=== PATIENT | female | born 1985 | race Caucasian/White ===

== ENCOUNTER 2022-07-06 08:13 | Inpatient (IN) ==
[2022-07-06] MEDS ORDERED: Buffered Lidocaine 1% SYRIN 1 ml INTRADERM ONE (09:19)
[2022-07-06] MEDS ORDERED: miSOPROStol 100 mcg TAB VAGINAL ONE (09:19)
[2022-07-06] MEDS ORDERED: Lactated Ringers 1000 ml BAG 1,000 ML IV ONE (09:19)
[2022-07-06 10:11] LABS: Urine Benzodiazepine Screen None Detected (None Detect); Urine Cannabinoids Screen None Detected (None Detect); Urine Opiates Screen None Detected (None Detect)
[2022-07-06 21:24] LABS: ABS Basophils 0.1 10^3/ul (0-0.2); ABS Eosinophils 0.1 10^3/ul (0-0.6); ABS Lymphocytes 1.4 10^3/ul (1.0-4.8); ABS Monocytes 0.8 10^3/ul (0-0.8); ABS Neutrophils 8.7 10^3/ul (1.5-7.7); Eosinophil % 0.5 %; Hematocrit 40 % (35-47); Hemoglobin 12.8 g/dL (12.0-16.0); Lymphocyte % 12.8 %; Mean Corpuscular HGB Conc 32 g/dL (31-36); Mean Corpuscular Hemoglobin 28 pg (27-31); Mean Corpuscular Volume 88 fL (80-97); Mean Platelet Volume 10.1 fL (7.4-10.4); Platelet Count 184 10^3/uL (150-450); Red Blood Count 4.57 10^6 /uL (3.70-4.87); Red Cell Distribution Width 16 % (10-15); White Blood Count 11.1 10^3/uL (3.5-10.8)
[2022-07-06] MEDS ORDERED: EPINEPHrine SULFITE FREE 1 MG/ML ONE (21:29)
[2022-07-06] MEDS ORDERED: Lidocaine 1% VIAL 10 MG/ML VIAL 30 ML ONE (21:29)
[2022-07-06] MEDS ORDERED: OBEPIDURAL (200 ML) 200 ML EPIDURAL ONE (21:29)
[2022-07-06] MEDS: OBEPIDURAL (200 ML) 200 ML EPIDURAL SCH (22:15)
[2022-07-06] MEDS ORDERED: Phenylephrine 40 mcg/mL 10mL (400mcg) SYRINGE IV PUSH PRN ×2 (22:24)
[2022-07-06] MEDS ORDERED: Sodium Citrate/Citric Acid LIQ 15 ML UDC PO PRN (22:24)
[2022-07-06] MEDS ORDERED: Lactated Ringers 1000 ml BAG 1,000 ML IV SCH (23:00)
[2022-07-07] MEDS: Oxytocin in LR 20,000 MILLI.UNIT/1,000 ML BAG IV SCH (01:05)
[2022-07-07] MEDS: Lactated Ringers 1000 ml BAG 1,000 ML IV ONE ×2 (02:01→05:07)
[2022-07-07] MEDS: Lactated Ringers 1000 ml BAG 1,000 ML IV SCH ×2 (06:19→19:03)
[2022-07-07 06:25] LABS: Urine Appearance Clear; Urine Bilirubin Negative (Negative); Urine Blood 2+ (Negative); Urine Color Straw; Urine Glucose Negative (Negative); Urine Ketones Trace (Negative); Urine Nitrite Negative (Negative); Urine Protein Negative (Negative); Urine Specific Gravity 1.003 (1.002-1.030); Urine Urobilinogen Negative (Negative)
[2022-07-07 06:29] LABS: Urine Bacteria Absent (Absent); Urine Red Blood Cell Trace(0-2/hpf) (Absent); Urine Squamous Epithelial Cell Present (Absent); Urine White Blood Cell Trace(0-5/hpf) (Absent)
[2022-07-07] MEDS: OBEPIDURAL (200 ML) 200 ML EPIDURAL SCH (15:39)
[2022-07-07] MEDS ORDERED: ceFAZolin 2 GM in NS PREMIX 2 GM/100 ML BAG IVPB ONE (23:36)
[2022-07-07] MEDS ORDERED: ceFAZolin 2 GM/50 ML BAG IV ONE (23:45)
[2022-07-08] MEDS: Lactated Ringers 1000 ml BAG 1,000 ML IV SCH (00:14)
[2022-07-08] MEDS: Oxytocin in LR 20,000 MILLI.UNIT/1,000 ML BAG IV SCH (00:14)
[2022-07-08] MEDS ORDERED: fentaNYL 100 mcg/2 ml 50 MCG/ML VIAL ONE (00:23)
[2022-07-08] MEDS ORDERED: Morphine PF AMP (0.5MG/ML) 5 MG/10 ML AMP ONE (00:23)
[2022-07-08] MEDS ORDERED: Oxytocin 10 UNITS/ML 1 ML VIAL ONE ×2 (00:24→01:34)
[2022-07-08] MEDS ORDERED: Phenylephrine IV 10 MG/ML 1 ml VIAL ONE (00:24)
[2022-07-08] MEDS ORDERED: Ondansetron 4 mg VIAL 2 MG/ML 2 ml VIAL ONE (01:04)
[2022-07-08] MEDS ORDERED: Dexamethasone IV 4 MG/ML VIAL 1 ml VIAL ONE (01:04)
[2022-07-08] MEDS ORDERED: Ondansetron 4 mg VIAL 2 MG/ML 2 ml VIAL IV PRN (01:22)
[2022-07-08] MEDS ORDERED: Acetaminophen IV 1 GM/100ML 1,000 MG/100 ML BAG IV PRN (01:22)
[2022-07-08] MEDS ORDERED: Metoclopramide 5 MG/ML VIAL (10 mg) IV PRN (01:22)
[2022-07-08] MEDS ORDERED: Naloxone 0.4 mg VIAL 0.4 mg/ml 1 ml VIAL IV PUSH PRN (01:22)
[2022-07-08] MEDS ORDERED: Acetaminophen IV 1 GM/100ML 1,000 MG/100 ML BAG IV ONE (01:23)
[2022-07-08] MEDS ORDERED: Witch Hazel PAD JAR TOPICAL PRN (01:55)
[2022-07-08] MEDS ORDERED: Dibucaine 1% OINT 28.35 GM TUBE PR PRN (01:55)
[2022-07-08] MEDS ORDERED: Glycerin ADULT 2.4 gm SUPP PR PRN (01:55)
[2022-07-08] MEDS ORDERED: Lactated Ringers 1000 ml BAG 1,000 ML IV SCH (02:00)
[2022-07-09 06:42] LABS: ABS Basophils 0.1 10^3/ul (0-0.2); ABS Eosinophils 0.3 10^3/ul (0-0.6); ABS Monocytes 0.7 10^3/ul (0-0.8); ABS Neutrophils 10.2 10^3/ul (1.5-7.7); Eosinophil % 2.7 %; Hematocrit 29 % (35-47); Hemoglobin 9.7 g/dL (12.0-16.0); Mean Corpuscular HGB Conc 34 g/dL (31-36); Mean Corpuscular Hemoglobin 30 pg (27-31); Mean Corpuscular Volume 88 fL (80-97); Mean Platelet Volume 9.9 fL (7.4-10.4); Nucleated Red Blood Cells % 0.1; Platelet Count 151 10^3/uL (150-450); Red Blood Count 3.27 10^6 /uL (3.70-4.87); Red Cell Distribution Width 16 % (10-15); White Blood Count 12.3 10^3/uL (3.5-10.8)
[2022-07-09] MEDS: Enoxaparin 40 MG/0.4 ML SYR SUBCUT SCH (10:18)
[2022-07-10] MEDS: Enoxaparin 40 MG/0.4 ML SYR SUBCUT SCH (09:09)
[2022-07-11 08:04] VITALS: BP 114/70
[2022-07-11] MEDS: Enoxaparin 40 MG/0.4 ML SYR SUBCUT SCH (10:13)
== END 2022-07-11 13:01 | disposition home or self-care (01) | DRG 540 ==
LOC: MCHOBOUT 08:13 → MCHOB 09:21
PROVIDERS: ADMIT Midwife; ATTEND Midwife